=== PATIENT | male | born 1980 | race African-American/Black ===

== ENCOUNTER 2023-05-06 18:31 | Emergency (ER) | payer SELFPAY ==
[~2023-05-06] VITALS: Ht 180.3 cm; Wt 63.6 kg
[~2023-05-06 18:31] MED LIST: NORCO 325 MG-101 TAB PO; NORCO 325 MG-51 TAB PO; NORCO 325 MG-7.1 TAB PO
[2023-05-06 18:52] VITALS: TEMP 98
[2023-05-06 19:53] VITALS: BP 148/85; PULSE 61
[2023-05-09] MEDS ORDERED: CYCLOGYL 1%2 ML/BOT OP (15:36)
== END 2023-05-06 19:53 | disposition home or self-care (01) ==
LOC: COL.ER 18:31
DX: S05.02XA Injury of conjunctiva and corneal abrasion without foreign body, left eye, initial encounter (principal); W31.9XXA Contact with unspecified machinery, initial encounter; Y93.89 Activity, other specified; Y92.59 Other trade areas as the place of occurrence of the external cause; Y99.0 Civilian activity done for income or pay